=== PATIENT | female | born 1970 | race Caucasian/White ===

== ENCOUNTER 2016-12-01 21:09 | Inpatient (IN) | payer OTHER ==
[~2016-12-01] VITALS: Ht 165.1 cm; Wt 114.3 kg
[2016-12-01 20:00] VITALS: BP 130/82
[~2016-12-01 21:09] MED LIST: ALBU17AE26
[2016-12-01] MEDS ORDERED: NITROGLYCERIN OINT 1GM/INCH UDPKT TD STA (22:21)
[2016-12-01] MEDS ORDERED: MORPHINE SULFATE 4 MG/ML CPJ (NOT FOR IM USE) IV STA (22:21)
[2016-12-01] MEDS ORDERED: ASPIRIN 325MG EC TABLET PO ONE (22:30)
[2016-12-01 22:44] LABS: BASOPHILS % 0.7 % (0.0-2.0); EOSINOPHILS % 5.5 % (0.0-5.0); HEMATOCRIT. 30.6 % (36.0-48.0); HEMOGLOBIN. 9.6 g/dL (12.0-16.0); LYMPHOCYTES % 30.1 % (20.0-50.0); MEAN CORPUSCULAR VOLUME 73.4 fL (81.0-99.0); MEAN PLATELET VOLUME 7.6 fl (7.4-10.4); MONOCYTES % 5.1 % (2.0-8.0); NEUTROPHILS % 58.6 % (40.0-76.0); PLATELET 385 x1000/uL (130-400); RED BLOOD CELL COUNT 4.16 mill/uL (4.2-5.4); RED CELL DISTRIBUTION WIDTH 14.7 % (11.6-14.6)
[2016-12-01 23:02] LABS: CARBON DIOXIDE 29 mEq/L (21-32); CHLORIDE 99 mEq/L (98-107); TROPONIN I < 0.02 ng/mL (0.00-0.04)
[2016-12-02 09:53] VITALS: BP 123/69
[2016-12-02 10:00] VITALS: BP 123/69
[2016-12-02] MEDS ORDERED: FURO40TA5 PO (11:28)
[2016-12-02] MEDS ORDERED: GLIP10TA10 PO (11:28)
[2016-12-02] MEDS ORDERED: DULA1.5P SQ (11:28)
[2016-12-02] MEDS ORDERED: GABA-533 PO (11:28)
[2016-12-02] MEDS ORDERED: BIMA2.5D4 EACHEYE (11:28)
[2016-12-02] MEDS ORDERED: PANT40TA4 PO (11:28)
[2016-12-02] MEDS ORDERED: CARV12.545 PO (11:28)
[2016-12-02] MEDS ORDERED: ENAL20TA PO (11:28)
[2016-12-02] MEDS ORDERED: PENT400T2 PO (11:28)
[2016-12-02] MEDS ORDERED: LANTUSUD SUBCUT (11:28)
[2016-12-02] MEDS ORDERED: DICL75TA5 PO (11:28)
[2016-12-02] MEDS ORDERED: DIGO125T82 PO (11:28)
[2016-12-02] MEDS ORDERED: ALBU05 IH (11:28)
[2016-12-02] MEDS ORDERED: FLUT1DIS3 IH (11:28)
[2016-12-02] MEDS ORDERED: SPIR25TA4 PO (11:28)
[2016-12-02] MEDS ORDERED: CANA1TAB2 PO (11:28)
[2016-12-02] MEDS ORDERED: INSLIS SUBCUT ×2 (11:28)
[2016-12-02] MEDS ORDERED: METO-293 PO (11:28)
[2016-12-02] MEDS ORDERED: DILT180C3 PO (11:28)
[2016-12-02] MEDS ORDERED: ASPI-1159 PO (11:28)
[2016-12-02] MEDS ORDERED: GEMF600T3 PO (11:28)
[2016-12-02 12:12] VITALS: BP 121/68
[2016-12-02] MEDS ORDERED: ACETAMINOPHEN 325MG TABLET PO PRN (13:45)
[2016-12-02] MEDS ORDERED: HYDROCODONE/ACETAMINOPHEN 5/325MG TABLET PO PRN (13:45)
[2016-12-02] MEDS ORDERED: CLONIDINE 0.1MG TABLET PO PRN (13:45)
[2016-12-02] MEDS ORDERED: MAGNESIUM/ALUMINUM HYDROXIDE/SIMETHICONE 30ML UDC PO PRN (13:45)
[2016-12-02] MEDS ORDERED: DOCUSATE SODIUM 100MG CAPSULE PO PRN (13:45)
[2016-12-02] MEDS ORDERED: ONDANSETRON HCL 4MG/2ML VIAL IV PRN (13:45)
[2016-12-02] MEDS ORDERED: IPRATROPIUM/ALBUTEROL 0.5-3(2.5)MG/3ML NEB INH PRN (13:45)
[2016-12-02] MEDS ORDERED: ALBUTEROL (0.5%) 2.5MG/0.5ML NEB HHN PRN (14:45)
[2016-12-02] MEDS ORDERED: ALBUTEROL 6.7GM HFA INHALER ORI PRN (14:45)
[2016-12-02 15:37] LABS: CLARITY URINE CLEAR (CLEAR); COLOR URINE YELLOW (YELLOW); GLUCOSE URINE 3+ (NEGATIVE); KETONES URINE NEGATIVE (NEGATIVE); LEUKOCYTE ESTERASE URINE NEGATIVE (NEGATIVE); NITRITE URINE NEGATIVE (NEGATIVE); OCCULT BLOOD URINE 1+ (NEGATIVE); PROTEIN URINE NEGATIVE (NEGATIVE)
[2016-12-02] MEDS: PANTOPRAZOLE 40MG DR TABLET PO SCH (15:41)
[2016-12-02] MEDS: FUROSEMIDE 40MG TABLET PO SCH (15:41)
[2016-12-02] MEDS: ASPIRIN 81MG EC TABLET PO SCH (15:48)
[2016-12-02] MEDS: SPIRONOLACTONE 25MG TABLET PO SCH (15:48)
[2016-12-02 16:00] VITALS: BP_SYST 103; BP_SYST 141; BP_DIAS 68; BP_DIAS 79
[2016-12-02 16:00] LABS: *AMPHETAMINES SCREEN URINE NEGATIVE (NEGATIVE); *BARBITURATES SCREEN URINE NEGATIVE (NEGATIVE); *BENZODIAZEPINES SCREEN URINE NEGATIVE (NEGATIVE); *COCAINE SCREEN URINE NEGATIVE (NEGATIVE); CANNABINOID URINE SCREEN NEGATIVE (NEGATIVE); METHADONE URINE SCREEN NEGATIVE (NEGATIVE); OPIATES URINE SCREEN NEGATIVE (NEGATIVE); PHENCYCLIDINE URINE SCREEN NEGATIVE (NEGATIVE)
[2016-12-02 16:22] LABS: CARBON DIOXIDE 28 mEq/L (21-32); CHLORIDE 100 mEq/L (98-107); TOTAL IRON BINDING CAPACITY 427 ug/dL (250-450)
[2016-12-02 16:27] LABS: CREATINE KINASE 73 IU/L (26-192); CREATINE KINASE MB FRACTION 1.7 ng/mL (0.5-3.6); TROPONIN I < 0.02 ng/mL (0.00-0.04)
[2016-12-02] MEDS: BLOOD SUGAR DIAGNOSTIC STRIP TEST SCH ×2 (17:00→21:00)
[2016-12-02] MEDS ORDERED: METFORMIN HCL PO SCH (17:00)
[2016-12-02] MEDS ORDERED: DEXTROSE 50% WATER 50ML SYRINGE IV PRN (17:00)
[2016-12-02] MEDS ORDERED: [UNRECOGNIZED DRUG - OTHER] PO SCH (17:00)
[2016-12-02] MEDS ORDERED: CANAGLIFLOZIN PO SCH (17:00)
[2016-12-02] MEDS ORDERED: MEDICATION NOT ON FORMULARY EA (Fluticasone/Salmeterol (Advair 250-50 Diskus) 1 EACH) IH SCH (17:00)
[2016-12-02] MEDS ORDERED: MEDICATION NOT ON FORMULARY EA (Bimatoprost (Lumigan) 1 DROP) EACHEYE SCH (17:00)
[2016-12-02] MEDS: GABAPENTIN 400MG CAPSULE PO SCH (18:36)
[2016-12-02] MEDS: GEMFIBROZIL 600MG TABLET PO SCH (18:36)
[2016-12-02] MEDS: DIGOXIN 125MCG TABLET PO SCH (18:37)
[2016-12-02] MEDS: GLIPIZIDE 10MG TABLET PO SCH (18:37)
[2016-12-02] MEDS: METOCLOPRAMIDE HCL 10MG TABLET PO SCH (18:38)
[2016-12-02] MEDS: PENTOXIFYLLINE 400MG TABLET PO SCH (18:39)
[2016-12-02] MEDS: DICLOFENAC SODIUM 75MG DR (EC) TABLET PO SCH (18:49)
[2016-12-02] MEDS ORDERED: [UNRECOGNIZED DRUG - OTHER] SUBCUT SCH (21:00)
[2016-12-02] MEDS ORDERED: INSULIN GLARGINE HUM REC ANLOG SUBCUT SCH (21:00)
[2016-12-02] MEDS: ALBUTEROL (0.083%) 2.5MG/3ML NEB HHN SCH (21:14)
[2016-12-02] MEDS: BUDESONIDE 0.5MG/2ML NEB HHN SCH (21:14)
[2016-12-02] MEDS: ENOXAPARIN 30MG/0.3ML SYR SUBCUT SCH (22:09)
[2016-12-02] MEDS: CARVEDILOL 12.5MG TABLET PO SCH (22:10)
[2016-12-02] MEDS: INSULIN DETEMIR UD 100 UNITS/ML SYR SUBCUT SCH (22:14)
[2016-12-02 23:43] LABS: CREATINE KINASE 64 IU/L (26-192); TROPONIN I < 0.02 ng/mL (0.00-0.04)
[2016-12-02 23:44] LABS: CREATINE KINASE MB FRACTION 1.4 ng/mL (0.5-3.6)
[2016-12-03] VITALS: BP 103/53
[2016-12-03] MEDS: ALBUTEROL (0.083%) 2.5MG/3ML NEB HHN SCH ×4 (01:03→20:30)
[2016-12-03 04:00] VITALS: BP 104/58
[2016-12-03] MEDS: BLOOD SUGAR DIAGNOSTIC STRIP TEST SCH ×4 (06:13→21:00)
[2016-12-03] MEDS: PANTOPRAZOLE 40MG DR TABLET PO SCH (06:25)
[2016-12-03] MEDS: INSULIN LISPRO 100 UNITS/ML SUBCUT SCH ×2 (06:30→12:02)
[2016-12-03 08:00] VITALS: BP 123/67
[2016-12-03] MEDS: BUDESONIDE 0.5MG/2ML NEB HHN SCH ×2 (08:23→20:30)
[2016-12-03 08:41] LABS: BASOPHILS % 0.6 % (0.0-2.0); EOSINOPHILS % 8.9 % (0.0-5.0); HEMATOCRIT. 28.7 % (36.0-48.0); LYMPHOCYTES % 27.3 % (20.0-50.0); MEAN CORPUSCULAR HEMOGLOBIN 23.4 pg (28.0-32.0); MEAN CORPUSCULAR VOLUME 74.2 fL (81.0-99.0); MEAN PLATELET VOLUME 7.2 fl (7.4-10.4); MONOCYTES % 6.6 % (2.0-8.0); NEUTROPHILS % 56.6 % (40.0-76.0); PLATELET 359 x1000/uL (130-400); RED BLOOD CELL COUNT 3.86 mill/uL (4.2-5.4); RED CELL DISTRIBUTION WIDTH 14.6 % (11.6-14.6)
[2016-12-03] MEDS ORDERED: MEDICATION NOT ON FORMULARY EA (Enalapril Maleate 1 TAB) PO SCH (09:00)
[2016-12-03] MEDS ORDERED: ASPIRIN 81MG EC TABLET PO SCH (09:00)
[2016-12-03] MEDS: DILTIAZEM HCL 180MG CAPSULE CD 24HR PO SCH (09:10)
[2016-12-03] MEDS: DICLOFENAC SODIUM 75MG DR (EC) TABLET PO SCH ×2 (09:10→16:22)
[2016-12-03] MEDS: GABAPENTIN 400MG CAPSULE PO SCH ×2 (09:10→16:22)
[2016-12-03] MEDS: ENALAPRIL 10MG TABLET PO SCH (09:10)
[2016-12-03] MEDS: SPIRONOLACTONE 25MG TABLET PO SCH (09:10)
[2016-12-03] MEDS: METOCLOPRAMIDE HCL 10MG TABLET PO SCH ×2 (09:11→16:21)
[2016-12-03] MEDS: PENTOXIFYLLINE 400MG TABLET PO SCH ×2 (09:11→16:22)
[2016-12-03] MEDS: GLIPIZIDE 10MG TABLET PO SCH ×2 (09:11→16:21)
[2016-12-03] MEDS: ASPIRIN 81MG EC TABLET PO SCH (09:11)
[2016-12-03] MEDS: FUROSEMIDE 40MG TABLET PO SCH (09:11)
[2016-12-03] MEDS: GEMFIBROZIL 600MG TABLET PO SCH ×2 (09:11→16:21)
[2016-12-03] MEDS: CARVEDILOL 12.5MG TABLET PO SCH ×2 (09:11→21:00)
[2016-12-03] MEDS: ENOXAPARIN 30MG/0.3ML SYR SUBCUT SCH (09:11)
[2016-12-03 09:16] LABS: DIGOXIN 0.2 ng/mL (0.9-2.0)
[2016-12-03 12:00] VITALS: BP 99/48
[2016-12-03 16:00] VITALS: BP 97/47
[2016-12-03 17:00] LABS: HCG SCREEN NEGATIVE
[2016-12-03] MEDS: DIGOXIN 125MCG TABLET PO SCH (17:58)
[2016-12-03] MEDS: LATANOPROST 0.005% OPHTH DROPS 2.5ML BOTHEYE SCH ×2 (21:00→21:04)
[2016-12-03] MEDS: ENOXAPARIN 40MG/0.4ML SYR SUBCUT SCH (21:05)
[2016-12-03 21:11] VITALS: BP 97/51
[2016-12-03] MEDS: INSULIN DETEMIR UD 100 UNITS/ML SYR SUBCUT SCH (23:04)
[2016-12-04] MEDS: ALBUTEROL (0.083%) 2.5MG/3ML NEB HHN SCH ×2 (00:24→07:45)
[2016-12-04] MEDS: BLOOD SUGAR DIAGNOSTIC STRIP TEST SCH ×2 (06:45→12:24)
[2016-12-04 07:04] LABS: BASOPHILS % 0.6 % (0.0-2.0); HEMATOCRIT. 27.8 % (36.0-48.0); HEMOGLOBIN. 8.8 g/dL (12.0-16.0); LYMPHOCYTES % 30.5 % (20.0-50.0); MEAN CORPUSCULAR HEMOGLOBIN 23.5 pg (28.0-32.0); MEAN CORPUSCULAR VOLUME 74.7 fL (81.0-99.0); MEAN PLATELET VOLUME 7.6 fl (7.4-10.4); MONOCYTES % 5.8 % (2.0-8.0); NEUTROPHILS % 55.1 % (40.0-76.0); PLATELET 372 x1000/uL (130-400); RED BLOOD CELL COUNT 3.73 mill/uL (4.2-5.4); RED CELL DISTRIBUTION WIDTH 14.8 % (11.6-14.6)
[2016-12-04] MEDS: PANTOPRAZOLE 40MG DR TABLET PO SCH (07:04)
[2016-12-04] MEDS: INSULIN LISPRO 100 UNITS/ML SUBCUT SCH ×2 (07:09→12:52)
[2016-12-04 08:00] VITALS: BP 109/64
[2016-12-04] MEDS ORDERED: CANA1TAB6 PO (08:01)
[2016-12-04 09:05] LABS: CARBON DIOXIDE 27 mEq/L (21-32); CHLORIDE 100 mEq/L (98-107)
[2016-12-04] MEDS: ENALAPRIL 10MG TABLET PO SCH (09:24)
[2016-12-04] MEDS: DILTIAZEM HCL 180MG CAPSULE CD 24HR PO SCH (09:25)
[2016-12-04] MEDS: GABAPENTIN 400MG CAPSULE PO SCH (09:25)
[2016-12-04] MEDS: FUROSEMIDE 40MG TABLET PO SCH (09:25)
[2016-12-04] MEDS: ASPIRIN 81MG EC TABLET PO SCH (09:25)
[2016-12-04] MEDS: SPIRONOLACTONE 25MG TABLET PO SCH (09:25)
[2016-12-04] MEDS: GEMFIBROZIL 600MG TABLET PO SCH (09:25)
[2016-12-04] MEDS: DICLOFENAC SODIUM 75MG DR (EC) TABLET PO SCH (09:26)
[2016-12-04] MEDS: METOCLOPRAMIDE HCL 10MG TABLET PO SCH (09:26)
[2016-12-04] MEDS: CARVEDILOL 12.5MG TABLET PO SCH (09:27)
[2016-12-04] MEDS: GLIPIZIDE 10MG TABLET PO SCH (09:28)
[2016-12-04] MEDS: ENOXAPARIN 40MG/0.4ML SYR SUBCUT SCH (10:15)
[2016-12-04] MEDS: PENTOXIFYLLINE 400MG TABLET PO SCH (10:18)
[2016-12-04 12:04] VITALS: BP 97/57
[2016-12-04] MEDS ORDERED: INSULIN LISPRO (LOW DOSE) 100 UNITS/ML SUBCUT SCH (12:15)
[2016-12-04 12:27] VITALS: BP 97/57
[2016-12-09] MEDS ORDERED: DULAGLUTIDE 1.5 MG SQ SCH (07:00)
== END 2016-12-04 14:30 | disposition home or self-care (01) | DRG 445 ==
LOC: ER 21:09 → 5WST 12-02 00:58 → ENRESERV 12-02 07:23
PROVIDERS: ADMIT Internal Medicine; ATTEND Internal Medicine
DX: K80.20 Calculus of gallbladder without cholecystitis without obstruction (principal); Z68.41 Body mass index [BMI] 40.0-44.9, adult; I11.0 Hypertensive heart disease with heart failure; I50.20 Unspecified systolic (congestive) heart failure; E11.9 Type 2 diabetes mellitus without complications; D50.9 Iron deficiency anemia, unspecified; D25.9 Leiomyoma of uterus, unspecified; R07.89 Other chest pain; J45.909 Unspecified asthma, uncomplicated; E66.9 Obesity, unspecified; E66.01 Morbid (severe) obesity due to excess calories; R19.00 Intra-abdominal and pelvic swelling, mass and lump, unspecified site; K21.9 Gastro-esophageal reflux disease without esophagitis; Z79.82 Long term (current) use of aspirin; Z79.4 Long term (current) use of insulin; Z79.84 Long term (current) use of oral hypoglycemic drugs; Z79.899 Other long term (current) drug therapy
CPT/HCPCS: 36415; 71010; 74176; 76705; 80048; 80053; 80061; 80162; 80305; 81001; 82270; 82550; 82553; 82962; 83540; 83550; 83690; 83735; 83880; 84443; 84484; 84703; 85025; 85044; 93005; 93306; 93970; 94640; 94664; 96374; 99285; J1650; J1815; J2270; J7611; J7620; J7626; J8597

== ENCOUNTER 2018-01-17 00:05 | Inpatient (IN) | payer MEDICARE, OTHER ==
[~2018-01-17] VITALS: Ht 165.1 cm; Wt 118.9 kg
[2018-01-17] VITALS (8 sets, daily range): BP systolic 94–124; BP diastolic 46–85
[~2018-01-17 00:05] MED LIST changes: +ALBU05 IH; -ALBU17AE26; +ASPI-1159 PO; +BIMA2.5D4 EACHEYE; +CANA1TAB2 PO; +CANA1TAB6 PO; +CARV12.545 PO; +DICL75TA5 PO; +DIGO125T82 PO; +DILT180C3 PO; +DULA1.5P SQ; +ENAL20TA PO; +FLUT1DIS3 IH; +FURO40TA5 PO; +GABA-533 PO; +GEMF600T4 PO; +GLIP10TA10 PO; +INSLIS SUBCUT; +LANTUSUD SUBCUT; +METO-293 PO; +PANT40TA4 PO; +PENT400T11 PO; +SPIR25TA6 PO
[2018-01-17] MEDS ORDERED: ACETAMINOPHEN 325MG TABLET PO STA (01:22)
[2018-01-17] MEDS ORDERED: VANCOMYCIN 1 G PREMIX 200 ML IV ONE (01:30)
[2018-01-17] MEDS ORDERED: LEVOFLOXACIN 750MG PREMIX 150 ML IV ONE (01:30)
[2018-01-17] MEDS ORDERED: SODIUM CHLORIDE 0.9% 1000ML BAG (SEPSIS BOLUS) IV ONE (01:30)
[2018-01-17 02:14] LABS: HEMATOCRIT. 27.9 % (36.0-48.0); HEMOGLOBIN. 8.8 g/dL (12.0-16.0); MEAN CORPUSCULAR HEMOGLOBIN 24.1 pg (28.0-32.0); MEAN CORPUSCULAR VOLUME 76.1 fL (81.0-99.0); MEAN PLATELET VOLUME 7.5 fl (7.4-10.4); PLATELET 388 x1000/uL (130-400); RED BLOOD CELL COUNT 3.66 mill/uL (4.2-5.4); RED CELL DISTRIBUTION WIDTH 16.5 % (11.6-14.6)
[2018-01-17 02:25] LABS: CHLORIDE 102 mEq/L (98-107)
[2018-01-17 02:28] LABS: PROTHROMBIN TIME 10.5 sec (9.1-11.1)
[2018-01-17 03:06] LABS: PLATELET ESTIMATE NORMAL
[2018-01-17 05:19] LABS: CLARITY URINE CLOUDY (CLEAR); COLOR URINE YELLOW (YELLOW); KETONES URINE TRACE (NEGATIVE); LEUKOCYTE ESTERASE URINE 2+ (NEGATIVE); NITRITE URINE NEGATIVE (NEGATIVE); OCCULT BLOOD URINE NEGATIVE (NEGATIVE); PROTEIN URINE NEGATIVE (NEGATIVE); SPECIFIC GRAVITY URINE 1.016 (1.005-1.030); UROBILINOGEN URINE 0.2 E.U./dL (0.2-1.0)
[2018-01-17] MEDS ORDERED: INSLIS SUBCUT (09:55)
[2018-01-17] MEDS ORDERED: INSU100I24 SQ (10:06)
[2018-01-17] MEDS ORDERED: DEXTROSE 50% WATER 50ML SYRINGE IV PRN (11:30)
[2018-01-17] MEDS ORDERED: DEXT 5%/0.45% NACL 1000ML 1,000 ML IV SCH (12:20)
[2018-01-17] MEDS ORDERED: MORPHINE SULFATE 4 MG/ML CPJ (NOT FOR IM USE) IV PRN (12:20)
[2018-01-17 12:27] LABS: HEMOGLOBIN. 7.1 g/dL (12.0-16.0); MEAN CORPUSCULAR HEMOGLOBIN 23.6 pg (28.0-32.0); MEAN CORPUSCULAR VOLUME 76.8 fL (81.0-99.0); MEAN PLATELET VOLUME 7.4 fl (7.4-10.4); PLATELET 291 x1000/uL (130-400)
[2018-01-17] MEDS: BLOOD SUGAR DIAGNOSTIC STRIP TEST SCH ×3 (12:41→20:47)
[2018-01-17] MEDS: DEXT 5%/0.9% NACL 1,000 ML IV SCH (12:43)
[2018-01-17] MEDS ORDERED: ONDANSETRON HCL 4MG/2ML INJ IV PRN (12:45)
[2018-01-17 12:48] LABS: PLATELET ESTIMATE NORMAL
[2018-01-17] MEDS: ENOXAPARIN 40MG/0.4ML SYR SUBCUT SCH ×2 (13:38→22:40)
[2018-01-17] MEDS: INSULIN LISPRO 100 UNITS/ML SUBCUT SCH ×3 (13:39→22:38)
[2018-01-17] MEDS ORDERED: PIPERACILLIN/TAZOBACTAM 3.375GM/50ML PREMIX IV SCH (14:00)
[2018-01-17] MEDS: MEROPENEM 1,000 MG in SODIUM CHLORIDE 0.9% 100 ML IV SCH ×2 (14:43→22:41)
[2018-01-17] MEDS: DIGOXIN 125MCG TABLET PO SCH (18:00)
[2018-01-17] MEDS: GABAPENTIN 400MG CAPSULE PO SCH (18:00)
[2018-01-17] MEDS: ACETAMINOPHEN 650MG/20.3ML UDC PO PRN (19:54)
[2018-01-17] MEDS: CARVEDILOL 12.5MG TABLET PO SCH (19:56)
[2018-01-17] MEDS: LEVOFLOXACIN 500MG PREMIX 100 ML IV SCH (20:47)
[2018-01-17] MEDS: INSULIN GLARGINE UD 100 UNITS/ML SYR SUBCUT SCH (22:00)
[2018-01-18] VITALS (14 sets, daily range): BP systolic 91–130; BP diastolic 40–80
[2018-01-18] MEDS: ACETAMINOPHEN 650MG/20.3ML UDC PO PRN ×2 (01:14→09:42)
[2018-01-18] MEDS: DEXT 5%/0.9% NACL 1,000 ML IV SCH (01:15)
[2018-01-18 06:02] LABS: CHLORIDE 110 mEq/L (98-107)
[2018-01-18] MEDS: MEROPENEM 1,000 MG in SODIUM CHLORIDE 0.9% 100 ML IV SCH ×3 (06:11→21:10)
[2018-01-18 06:17] LABS: BASOPHILS % 0.2 % (0.0-2.0); EOSINOPHILS % 0.4 % (0.0-5.0); HEMATOCRIT. 22.2 % (36.0-48.0); LYMPHOCYTES % 9.2 % (20.0-50.0); MEAN CORPUSCULAR HEMOGLOBIN 23.8 pg (28.0-32.0); MEAN CORPUSCULAR VOLUME 76.8 fL (81.0-99.0); MEAN PLATELET VOLUME 7.8 fl (7.4-10.4); MONOCYTES % 4.5 % (2.0-8.0); NEUTROPHILS % 85.7 % (40.0-76.0); PLATELET 283 x1000/uL (130-400); RED CELL DISTRIBUTION WIDTH 16.7 % (11.6-14.6)
[2018-01-18 06:26] LABS: HEMOGLOBIN. 6.9 g/dL (12.0-16.0)
[2018-01-18] MEDS: BLOOD SUGAR DIAGNOSTIC STRIP TEST SCH ×4 (06:31→20:58)
[2018-01-18] MEDS: INSULIN LISPRO 100 UNITS/ML SUBCUT SCH ×4 (08:00→20:59)
[2018-01-18] MEDS: CARVEDILOL 12.5MG TABLET PO SCH ×2 (09:00→21:04)
[2018-01-18] MEDS: PANTOPRAZOLE SODIUM 40 MG/VIAL IV SCH (09:40)
[2018-01-18] MEDS: DILTIAZEM HCL 180MG CAPSULE CD 24HR PO SCH (09:40)
[2018-01-18] MEDS: GABAPENTIN 400MG CAPSULE PO SCH ×2 (09:41→17:36)
[2018-01-18] MEDS: SPIRONOLACTONE 25MG TABLET PO SCH (09:41)
[2018-01-18] MEDS: ENOXAPARIN 40MG/0.4ML SYR SUBCUT SCH ×2 (09:41→21:05)
[2018-01-18] MEDS: ASPIRIN 81MG TABLET PO SCH (13:07)
[2018-01-18] MEDS: DIGOXIN 125MCG TABLET PO SCH (17:36)
[2018-01-18] MEDS ORDERED: ACETAMINOPHEN 650MG/20.3ML UDC PO PRN (18:45)
[2018-01-18] MEDS: LEVOFLOXACIN 500MG PREMIX 100 ML IV SCH (19:52)
[2018-01-18] MEDS: ACETAMINOPHEN 325MG TABLET PO PRN (21:25)
[2018-01-18] MEDS: INSULIN GLARGINE UD 100 UNITS/ML SYR SUBCUT SCH (22:00)
[2018-01-19] VITALS (18 sets, daily range): BP systolic 101–127; BP diastolic 44–77
[2018-01-19] MEDS: ACETAMINOPHEN 325MG TABLET PO PRN (05:09)
[2018-01-19] MEDS: MEROPENEM 1,000 MG in SODIUM CHLORIDE 0.9% 100 ML IV SCH ×3 (08:09→22:01)
[2018-01-19] MEDS: BLOOD SUGAR DIAGNOSTIC STRIP TEST SCH ×4 (08:09→21:53)
[2018-01-19] MEDS: DEXT 5%/0.9% NACL 1,000 ML IV SCH ×2 (08:11→18:04)
[2018-01-19] MEDS: PANTOPRAZOLE SODIUM 40 MG/VIAL IV SCH ×2 (09:01→16:08)
[2018-01-19] MEDS: GABAPENTIN 400MG CAPSULE PO SCH ×2 (09:01→16:08)
[2018-01-19] MEDS: ENOXAPARIN 40MG/0.4ML SYR SUBCUT SCH (09:01)
[2018-01-19] MEDS: INSULIN LISPRO 100 UNITS/ML SUBCUT SCH ×4 (09:01→22:03)
[2018-01-19] MEDS: ASPIRIN 81MG TABLET PO SCH (09:02)
[2018-01-19] MEDS: SPIRONOLACTONE 25MG TABLET PO SCH (09:03)
[2018-01-19] MEDS: CARVEDILOL 12.5MG TABLET PO SCH ×2 (09:03→22:02)
[2018-01-19] MEDS: DILTIAZEM HCL 180MG CAPSULE CD 24HR PO SCH (09:03)
[2018-01-19 10:18] LABS: BASOPHILS % 0.3 % (0.0-2.0); EOSINOPHILS % 1.2 % (0.0-5.0); HEMATOCRIT. 25.4 % (36.0-48.0); LYMPHOCYTES % 15.7 % (20.0-50.0); MEAN CORPUSCULAR HEMOGLOBIN 24.8 pg (28.0-32.0); MEAN CORPUSCULAR VOLUME 78.2 fL (81.0-99.0); MEAN PLATELET VOLUME 7.6 fl (7.4-10.4); NEUTROPHILS % 77.8 % (40.0-76.0); PLATELET 281 x1000/uL (130-400); RED BLOOD CELL COUNT 3.25 mill/uL (4.2-5.4); RED CELL DISTRIBUTION WIDTH 16.7 % (11.6-14.6)
[2018-01-19 10:37] LABS: CHLORIDE 107 mEq/L (98-107)
[2018-01-19 14:16] LABS: T4 FREE 1.28 ng/dL (0.76-1.46)
[2018-01-19 17:48] LABS: HEMATOCRIT 25.4 % (36.0-48.0); HEMOGLOBIN 8.2 g/dL (12.0-16.0)
[2018-01-19 17:56] LABS: PARTIAL THROMBOPLASTIN TIME 29.6 sec (23.4-31.0); PROTHROMBIN TIME 10.3 sec (9.1-11.1)
[2018-01-19 18:02] LABS: AMYLASE 10 IU/L (25-115); TOTAL IRON BINDING CAPACITY 294 ug/dL (250-450)
[2018-01-19] MEDS: DIGOXIN 125MCG TABLET PO SCH (18:05)
[2018-01-19 19:54] LABS: FOLIC ACID (FOLATE) SERUM 13.6 ng/mL (>5.38)
[2018-01-19] MEDS: LEVOFLOXACIN 500MG PREMIX 100 ML IV SCH (22:01)
[2018-01-19] MEDS: INSULIN GLARGINE UD 100 UNITS/ML SYR SUBCUT SCH (22:04)
[2018-01-20] VITALS (8 sets, daily range): BP systolic 125–153; BP diastolic 10–92
[2018-01-20 02:49] LABS: HEMOGLOBIN 7.8 g/dL (12.0-16.0)
[2018-01-20] MEDS: MEROPENEM 1,000 MG in SODIUM CHLORIDE 0.9% 100 ML IV SCH ×2 (05:23→13:25)
[2018-01-20 06:13] LABS: HEMATOCRIT 24.2 % (36.0-48.0); HEMOGLOBIN 7.7 g/dL (12.0-16.0); MEAN CORPUSCULAR HEMOGLOBIN 24.6 pg (28.0-32.0); MEAN CORPUSCULAR VOLUME 77.6 fL (81.0-99.0); PLATELET 286 x1000/uL (130-400); RED BLOOD CELL COUNT 3.12 mill/uL (4.2-5.4); RED CELL DISTRIBUTION WIDTH 17.6 % (11.6-14.6)
[2018-01-20 06:39] LABS: CHLORIDE 105 mEq/L (98-107)
[2018-01-20] MEDS: DEXT 5%/0.9% NACL 1,000 ML IV SCH (07:25)
[2018-01-20] MEDS: BLOOD SUGAR DIAGNOSTIC STRIP TEST SCH ×3 (07:30→17:30)
[2018-01-20] MEDS: ASPIRIN 81MG TABLET PO SCH (10:53)
[2018-01-20] MEDS: PANTOPRAZOLE SODIUM 40 MG/VIAL IV SCH ×2 (10:53→19:12)
[2018-01-20] MEDS: DILTIAZEM HCL 180MG CAPSULE CD 24HR PO SCH (10:54)
[2018-01-20] MEDS: CARVEDILOL 12.5MG TABLET PO SCH (10:54)
[2018-01-20] MEDS: SPIRONOLACTONE 25MG TABLET PO SCH (10:55)
[2018-01-20] MEDS: INSULIN LISPRO 100 UNITS/ML SUBCUT SCH ×3 (10:56→18:00)
[2018-01-20] MEDS: GABAPENTIN 400MG CAPSULE PO SCH ×2 (11:24→19:12)
[2018-01-20] MEDS ORDERED: IRON SUCROSE COMPLEX 100 MG/5 ML ML IV SCH (15:00)
[2018-01-20 15:41] LABS: HEMATOCRIT 24.5 % (36.0-48.0); HEMOGLOBIN 7.8 g/dL (12.0-16.0)
[2018-01-20] MEDS: DIGOXIN 125MCG TABLET PO SCH (19:12)
== END 2018-01-20 20:38 | disposition home or self-care (01) | DRG 720 ==
LOC: ER 00:05 → 5EST 05:20 → EDBEDREQ 05:25 → EDBEDREQTM 05:25 → EDBEDREQ 06:34 → ENRESERV 07:13 → 5EST 10:36
PROVIDERS: ADMIT Internal Medicine; ATTEND Internal Medicine
PROC: 30233N1 Transfusion of Nonautologous Red Blood Cells into Peripheral Vein, Percutaneous Approach (ICD-10-PCS; principal; 2018-01-18)
DX: A41.9 Sepsis, unspecified organism (principal); I50.43 Acute on chronic combined systolic (congestive) and diastolic (congestive) heart failure; K80.00 Calculus of gallbladder with acute cholecystitis without obstruction; K92.2 Gastrointestinal hemorrhage, unspecified; R16.0 Hepatomegaly, not elsewhere classified; E88.09 Other disorders of plasma-protein metabolism, not elsewhere classified; E11.9 Type 2 diabetes mellitus without complications; D50.9 Iron deficiency anemia, unspecified; E66.9 Obesity, unspecified; R19.7 Diarrhea, unspecified; N39.0 Urinary tract infection, site not specified; E86.0 Dehydration; D25.9 Leiomyoma of uterus, unspecified; K82.8 Other specified diseases of gallbladder; K76.0 Fatty (change of) liver, not elsewhere classified; I11.0 Hypertensive heart disease with heart failure; J45.909 Unspecified asthma, uncomplicated; Z88.0 Allergy status to penicillin; Z98.891 History of uterine scar from previous surgery; Z91.041 Radiographic dye allergy status; Z79.4 Long term (current) use of insulin; Z79.899 Other long term (current) drug therapy; Z79.82 Long term (current) use of aspirin
CPT/HCPCS: 36415; 71045; 74176; 76705; 78227; 80048; 80061; 82150; 82270; 82607; 82728; 82746; 82962; 83036; 83540; 83550; 83605; 83880; 84439; 84443; 84484; 85014; 85018; 85027; 86304; 86850; 86900; 86920; 87015; 87045; 87427; 87449; 87493; 89055; 93005; 93306; 96365; 96366; 96367; 99291; A9537; C9113; J1650; J1815; J1956; J2185; J2270; J3370; J7030; J7042; J7050; P9016